=== PATIENT | female | born 1995 | race Two or more races ===

== ENCOUNTER 2021-09-23 08:32 | Day surgery (SDC) | payer OTHER ==
[2021-09-23] MEDS ORDERED: hydrALAZINE 20 MG/ML VIAL SLOW IVP PRN (09:20)
[2021-09-23] MEDS ORDERED: Lactated Ringer's 1,000 ML IV SCH (09:30)
[2021-09-23 10:22] LABS: Bilirubin Neg (Negative); Blood, Urine 25 (Negative); Clarity Clear (Clear); Glucose, Urine (Dipstick) 50 mg/dL (Negative); Ketone, Urine Negative (Negative); Leukocyte 100 (Negative); Nitrite Negative (Negative); Protein, Urine (Dipstick) Negative (Neg-Trace); Specific Gravity, Urine 1.015 (1.002-1.036); Urobilinogen Normal mg/dL (Less than 2)
[2021-09-23 10:28] LABS: Urine Culture Reflex No No
[2021-09-23 10:41] LABS: Platelet Count 265 10x3/uL (150-450)
[2021-09-23 10:42] LABS: #Eosinphils 0.1 10x3/uL (0.0-0.5); #Monocytes 0.8 10x3/uL (0.0-1.1); #Neutrophils 7.8 10x3/uL (1.5-8.4); %Basophils 0.1 % (0.0-2.0); %Eosinophils 1.2 % (0.0-6.0); %Lymphocytes 14.5 % (18.0-47.0); %Monocytes 7.3 % (0.0-10.0); %Neutrophils 76.4 % (40.0-75.0); Hemoglobin 9.4 g/dL (12.0-15.5); Mean Corpuscular HGB CONC 31.3 g/dL (32.0-36.0); Mean Corpuscular Volume 70.1 fl (81.6-98.3); Mean Platelet Volume 11.7 fl (7.4-10.4); RBC Distribution Width 18.4 % (11.5-14.5); Red Blood Cell (RBC) Count 4.28 10x6/uL (3.90-5.03); White Blood Cell (WBC) Count 10.3 10x3/uL (3.5-10.5)
[2021-09-23 10:46] LABS: RBC/HPF 0-3 HPF (0-3)
[2021-09-23 10:47] LABS: Bacteria/HPF 1+ HPF (None Seen); Squamous Epithelial 0-3 HPF (0-3); Yeast-Budding 1+ HPF (None Seen)
[2021-09-23 10:49] LABS: FFN Internal QC Analyzer PASS (PASS); FFN Internal QC Cassette PASS (PASS); Fetal Fibronectin Negative (Negative)
[2021-09-23] MEDS ORDERED: ceFAZolin 2 GM/Dextrose 50 ML IVPB ONE (11:49)
[2021-09-23 11:52] VITALS: BMI 37.8
[2021-09-23] MEDS ORDERED: Fluconazole 100 MG TAB PO SCH (14:00)
[2021-09-23] MEDS ORDERED: ceFAZolin 2 GM/Dextrose 50 ML 2 GM in Premix Bag 1 BAG IVPB SCH (20:00)
[2021-09-24] MEDS ORDERED: Fluconazole 100 MG TAB PO SCH (09:00)
== END 2021-09-23 13:35 | disposition home health service (06) ==
LOC: CSHLD/OP 08:32
PROVIDERS: ATTEND Obstetrics & Gynecology
DX: O26.853 Spotting complicating pregnancy, third trimester (principal); O98.813 Other maternal infectious and parasitic diseases complicating pregnancy, third trimester; B37.3 Candidiasis of vulva and vagina; O23.43 Unspecified infection of urinary tract in pregnancy, third trimester; N39.0 Urinary tract infection, site not specified; O24.419 Gestational diabetes mellitus in pregnancy, unspecified control; Z3A.31 31 weeks gestation of pregnancy
CPT/HCPCS: 36415; 76815; 81001; 82731; 85025; 87086; 87480; 87510; 87660; 96361; 96365; 99282; J0690

== ENCOUNTER 2021-10-15 09:13 | Day surgery (SDC) | payer OTHER ==
[2021-10-15] MEDS ORDERED: hydrALAZINE 20 MG/ML VIAL SLOW IVP PRN (10:56)
== END 2021-10-15 13:35 | disposition home or self-care (01) ==
LOC: CSHLD/OP 09:13
PROVIDERS: ATTEND Obstetrics & Gynecology
DX: O47.03 False labor before 37 completed weeks of gestation, third trimester (principal); O23.593 Infection of other part of genital tract in pregnancy, third trimester; O98.813 Other maternal infectious and parasitic diseases complicating pregnancy, third trimester; B37.3 Candidiasis of vulva and vagina; O24.414 Gestational diabetes mellitus in pregnancy, insulin controlled; Z3A.34 34 weeks gestation of pregnancy
CPT/HCPCS: 36416; 87480; 87510; 87660; 99285

== ENCOUNTER 2021-10-29 15:41 | Outpatient (CLI) | payer OTHER | END 2021-10-29 15:42 | disposition home or self-care (01) | LOC: CSHLAB 15:41 | PROVIDERS: ATTEND Family Medicine | DX: Z20.822 Contact with and (suspected) exposure to COVID-19 (principal) | CPT/HCPCS: 87811 ==

== ENCOUNTER 2021-10-30 14:14 | Day surgery (SDC) | payer OTHER ==
[2021-10-30 14:53] VITALS: BMI 37.3
[2021-10-30] MEDS ORDERED: hydrALAZINE 20 MG/ML VIAL SLOW IVP PRN (16:08)
== END 2021-10-30 18:15 | disposition home or self-care (01) ==
LOC: CSHLD/OP 14:14 → EEVIPCON 14:14 → CSHLD/OP 18:15
PROVIDERS: ATTEND Family Medicine
DX: O47.03 False labor before 37 completed weeks of gestation, third trimester (principal); O24.414 Gestational diabetes mellitus in pregnancy, insulin controlled; O99.013 Anemia complicating pregnancy, third trimester; O99.613 Diseases of the digestive system complicating pregnancy, third trimester; K21.9 Gastro-esophageal reflux disease without esophagitis; O23.593 Infection of other part of genital tract in pregnancy, third trimester; B96.89 Other specified bacterial agents as the cause of diseases classified elsewhere; O98.813 Other maternal infectious and parasitic diseases complicating pregnancy, third trimester; B37.3 Candidiasis of vulva and vagina; Z3A.36 36 weeks gestation of pregnancy
CPT/HCPCS: 87480; 87510; 87660

== ENCOUNTER 2021-11-03 18:00 | Inpatient (IN) | payer OTHER ==
[~2021-11-03 18:00] MED LIST: Bupivacaine 0.25% HCL 30 ML VIAL ONE; Bupivacaine 0.5% 10 ML VIAL ONE
[2021-11-03] MEDS ORDERED: HYDROcodone/Acetaminophen 5/325 mg Tablet PO PRN (22:48)
[2021-11-03] MEDS ORDERED: Lidocaine 1% (PF) 30 ML VIAL SC PRN (22:48)
[2021-11-03] MEDS ORDERED: Methylergonovine 0.2 MG/ML VIAL IM PRN (22:48)
[2021-11-03] MEDS ORDERED: Carboprost 250 MCG/ML AMP IM PRN (22:48)
[2021-11-03] MEDS ORDERED: Acetaminophen 500 MG TAB PO PRN (22:48)
[2021-11-03] MEDS ORDERED: Misoprostol 200 MCG TAB PR PRN (22:48)
[2021-11-03] MEDS ORDERED: NS w/ Oxytocin 30 units 500 ML IV SCH ×2 (22:48)
[2021-11-03] MEDS ORDERED: Lactated Ringer's 1,000 ML IV SCH (22:48)
[2021-11-03] MEDS ORDERED: Promethazine HCl 25 MG/ML VIAL IM PRN (22:48)
[2021-11-03] MEDS ORDERED: Ondansetron PF 4 MG/2 ML Vial IVP PRN (22:48)
[2021-11-03] MEDS ORDERED: Ibuprofen 800 MG TAB PO PRN (22:48)
[2021-11-03] MEDS ORDERED: hydrALAZINE 20 MG/ML VIAL SLOW IVP PRN (22:48)
[2021-11-03] MEDS ORDERED: Butorphanol Tartrate 1 MG/ML VIAL SLOW IVP PRN (22:48)
[2021-11-03] MEDS ORDERED: Diphenoxylate HCl/Atropine Tablet PO PRN (22:48)
[2021-11-03] MEDS ORDERED: Penicillin G Potassium 5 MILL.UNITS in Sodium Chloride 0.9% 100 ML IVPB SCH (23:00)
[2021-11-03 23:03] VITALS: BMI 37.3
[2021-11-04 00:05] LABS: Hemoglobin 9.3 g/dL (12.0-15.5); Mean Corpuscular HGB CONC 31.2 g/dL (32.0-36.0); Mean Corpuscular Hemoglobin 21.8 pg (27.0-33.0); Mean Corpuscular Volume 69.8 fl (81.6-98.3); Platelet Count 228 10x3/uL (150-450); RBC Distribution Width 25.4 % (11.5-14.5); Red Blood Cell (RBC) Count 4.27 10x6/uL (3.90-5.03); White Blood Cell (WBC) Count 9.1 10x3/uL (3.5-10.5)
[2021-11-04 00:22] LABS: Syphilis Antibody Nonreactive (Nonreactive); Syphilis Antibody Index 0.05 S/CO (<1.00 Non-Reactive)
[2021-11-04 00:25] LABS: HBSAg Index 0.14 S/CO (0-0.99); Hep B Surf Ag Non-Reactive S/CO (NonReactive)
[2021-11-04] MEDS: Penicillin G 2.5 MILL.units 2.5 MILL.UNITS in Premix Bag 1 BAG IVPB SCH ×3 (03:59→14:01)
[2021-11-04] MEDS: Misoprostol 100 MCG TAB VAG SCH ×2 (04:01→14:00)
[2021-11-04] MEDS ORDERED: Fentanyl 2 mcg/Bup 0.1% Cadd 100 ML ONE (08:11)
[2021-11-04] MEDS ORDERED: Ondansetron PF 4 MG/2 ML Vial IVP PRN ×2 (09:43→13:58)
[2021-11-04] MEDS ORDERED: diphenhydrAMINE 50 MG/ML VIAL IVP PRN (09:43)
[2021-11-04] MEDS ORDERED: Acetaminophen 325 MG TAB PO PRN (09:43)
[2021-11-04] MEDS ORDERED: Lactated Ringer's 500 ML IV PRN (09:43)
[2021-11-04] MEDS ORDERED: Naloxone HCl 0.4 mg/ml Vial IVP PRN ×2 (09:43)
[2021-11-04] MEDS ORDERED: Promethazine HCl 25 MG/ML VIAL IM PRN ×2 (09:43→13:58)
[2021-11-04] MEDS ORDERED: ePHEDrine Sulfate 50 MG/10 ML VIAL SLOW IVP PRN (09:43)
[2021-11-04] MEDS ORDERED: Moisturizing Cream (Eucerin) 113 GM JAR TOP PRN (09:43)
[2021-11-04] MEDS ORDERED: Fentanyl 2 mcg/Bupivacaine 0.1% Cassette 100 ML EPIDURAL SCH (09:45)
[2021-11-04] MEDS ORDERED: Communication Order-Pharmacy FS SCH (09:45)
[2021-11-04] MEDS ORDERED: Milk Of Magnesia 30 ML UDCUP PO PRN (13:58)
[2021-11-04] MEDS ORDERED: Bisacodyl 10 MG SUPP PR PRN (13:58)
[2021-11-04] MEDS ORDERED: HYDROcodone/Acetaminophen 5/325 mg Tablet PO PRN (13:58)
[2021-11-04] MEDS ORDERED: Boostrix 0.5 ML (Tdap) VIAL IM ONE (13:58)
[2021-11-04] MEDS ORDERED: Benzocaine-Menthol 82.5 ML CAN TOP PRN (13:58)
[2021-11-04] MEDS ORDERED: hydrALAZINE 20 MG/ML VIAL SLOW IVP PRN (13:58)
[2021-11-04] MEDS ORDERED: NS w/ Oxytocin 30 units 500 ML IV SCH (13:58)
[2021-11-04] MEDS ORDERED: diphenhydrAMINE 25 MG CAP PO PRN (13:58)
[2021-11-04] MEDS: Ibuprofen 800 MG TAB PO SCH ×2 (15:30→17:33)
[2021-11-04] MEDS: Ferrous Sulfate 325 MG TAB PO SCH (17:33)
[2021-11-04] MEDS: Docusate 100 MG CAP PO SCH (21:22)
[2021-11-05] MEDS: Ibuprofen 800 MG TAB PO SCH ×3 (02:07→18:05)
[2021-11-05] MEDS: Docusate 100 MG CAP PO SCH ×2 (09:37→20:47)
[2021-11-05] MEDS: Prenatal Vitamin 1 TAB PO SCH (09:37)
[2021-11-05] MEDS: Ferrous Sulfate 325 MG TAB PO SCH ×2 (09:37→18:04)
[2021-11-06] MEDS: Ibuprofen 800 MG TAB PO SCH ×3 (04:38→13:52)
[2021-11-06 07:44] VITALS: BP 120/70; TEMP 98.5
[2021-11-06] MEDS: Ferrous Sulfate 325 MG TAB PO SCH (08:00)
[2021-11-06] MEDS: Prenatal Vitamin 1 TAB PO SCH (08:00)
[2021-11-06] MEDS: Docusate 100 MG CAP PO SCH (08:01)
== END 2021-11-06 15:09 | disposition home or self-care (01) | DRG 807 ==
LOC: CSHLD 20:32 → CSHPED 11-04 13:40
PROVIDERS: ADMIT Family Medicine; ATTEND Family Medicine
PROC: 10E0XZZ Delivery of Products of Conception, External Approach (ICD-10-PCS; principal; 2021-11-04)
PROC: 0HQ9XZZ Repair Perineum Skin, External Approach (ICD-10-PCS; 2021-11-04)
PROC: 10907ZC Drainage of Amniotic Fluid, Therapeutic from Products of Conception, Via Natural or Artificial Opening (ICD-10-PCS; 2021-11-04)
PROC: 3E0P7VZ Introduction of Hormone into Female Reproductive, Via Natural or Artificial Opening (ICD-10-PCS; 2021-11-04)
DX: O24.424 Gestational diabetes mellitus in childbirth, insulin controlled (principal); Z37.0 Single live birth; Z79.4 Long term (current) use of insulin; Z3A.37 37 weeks gestation of pregnancy; Z20.822 Contact with and (suspected) exposure to COVID-19; O99.824 Streptococcus B carrier state complicating childbirth; O69.81X0 Labor and delivery complicated by cord around neck, without compression, not applicable or unspecified; O70.0 First degree perineal laceration during delivery
CPT/HCPCS: 36415; 36416; 51702; 85027; 86780; 86850; 86900; 86901; 87340; J0595; J2405; J2540; J2590; J3490; S0020

== ENCOUNTER 2023-06-29 11:49 | Emergency (ER) | payer OTHER, SELFPAY ==
[2023-06-29 13:13] LABS: Bilirubin Neg (Negative); Blood, Urine Negative (Negative); Clarity Clear (Clear); Glucose, Urine (Dipstick) Normal (Negative); Ketone, Urine Negative (Negative); Leukocyte Negative (Negative); Nitrite Negative (Negative); Protein, Urine (Dipstick) Negative (Neg-Trace); Urobilinogen Normal mg/dL (Less than 2)
[2023-06-29 13:15] LABS: Pregnancy Test - Urine (BHCG) Negative (Negative)
[2023-06-29 13:17] LABS: Pregu Control Background? CLEAR/WHITE (CLR/WHITE); Pregu Control Bar Appear? YES (CONTROL BAR)
[2023-06-29 14:28] LABS: Bacteria/HPF None Seen HPF (None Seen); CAUTI Indications for Culture Pelvic or flank pain; RBC/HPF 0-3 HPF (0-3); Squamous Epithelial 0-3 HPF (0-3); WBC/HPF None Seen HPF (0-3)
[2023-06-29 14:29] LABS: Urine Culture Reflex No No
== END 2023-06-29 13:59 | disposition home or self-care (01) ==
LOC: CSHERS 11:49
DX: N93.9 Abnormal uterine and vaginal bleeding, unspecified (principal)
CPT/HCPCS: 81001; 81025; 99283

== ENCOUNTER 2023-11-28 10:23 | Emergency (ER) | payer MEDICAID, SELFPAY ==
[2023-11-28] MEDS ORDERED: Ondansetron PF 4 MG/2 ML Vial ONE (11:34)
[2023-11-28 12:15] LABS: #Basophils 0.02 10x3/uL (0.0-0.2); #Eosinphils 0.13 10x3/uL (0.0-0.5); #Monocytes 0.92 10x3/uL (0.0-1.1); #Neutrophils 7.94 10x3/uL (1.5-8.4); %Basophils 0.2 % (0.0-2.0); %Eosinophils 1.1 % (0.0-6.0); %Neutrophils 69.4 % (40.0-75.0); Hematocrit 38.8 % (34.9-44.5); Hemoglobin 12.6 g/dL (12.0-15.5); Mean Corpuscular HGB CONC 32.5 g/dL (32.0-36.0); Mean Corpuscular Hemoglobin 26.2 pg (27.0-33.0); Mean Corpuscular Volume 80.7 fL (81.6-98.3); Mean Platelet Volume 10.3 fL (7.4-10.4); Platelet Count 299 10x3/uL (150-450); RBC Distribution Width 15.4 % (11.5-14.5); Red Blood Cell (RBC) Count 4.81 10x6/uL (3.90-5.03); White Blood Cell (WBC) Count 11.5 10x3/uL (3.5-10.5)
[2023-11-28 12:29] LABS: ALT (SGPT) 36 U/L (8-55); AST (SGOT) 25 U/L (5-34); Albumin 3.3 g/dL (3.5-5.0); Alkaline Phosphatase 81 U/L (40-110); Anion Gap 12 mmol/L (10-20); BUN (Urea Nitrogen) 8 mg/dL (7.0-18.7); Bilirubin, Total 0.3 mg/dL (0.2-1.2); Calc. Creatinine Clearance 0 mL/min (70-130); Calcium 9.8 mg/dL (7.8-10.44); Carbon Dioxide 24 mmol/L (22-29); Chloride 102 mmol/L (98-107); Estimated GFR 122; Globulin 4.3 g/dL (2.4-3.5); Glucose 93 mg/dL (70-105); Protein, Total 7.6 g/dL (6.0-8.3); Sodium 134 mmol/L (136-145)
[2023-11-28 13:32] LABS: Bilirubin Neg (Negative); Blood, Urine Negative (Negative); Clarity Slightly Cloudy (Clear); Glucose, Urine (Dipstick) Normal (Negative); Ketone, Urine Negative (Negative); Leukocyte Negative (Negative); Nitrite Negative (Negative); Protein, Urine (Dipstick) 15 mg/dl (Neg-Trace); Urobilinogen Normal mg/dL (Less than 2)
[2023-11-28 13:43] LABS: Bacteria/HPF 2+ HPF (None Seen); CAUTI Indications for Culture Pregnancy; RBC/HPF 0-3 HPF (0-3); WBC/HPF 0-3 HPF (0-3)
[2023-11-28 13:46] LABS: Urine Culture Reflex Yes Yes
[2023-11-28] MEDS ORDERED: Lidocaine 2% Viscous 10 mL, Alum & Magn 30 mL SSW SCH (14:00)
== END 2023-11-28 14:45 | disposition home or self-care (01) ==
LOC: CSHERS 10:23
DX: O21.0 Mild hyperemesis gravidarum (principal); O24.419 Gestational diabetes mellitus in pregnancy, unspecified control; Z3A.11 11 weeks gestation of pregnancy
CPT/HCPCS: 80053; 81001; 85025; 87086; 96361; 96374; J2405

== ENCOUNTER 2024-03-25 17:30 | Day surgery (SDC) | payer OTHER ==
[2024-03-25 18:14] VITALS: BMI 38.7
[2024-03-25] MEDS ORDERED: hydrALAZINE 20 MG/ML VIAL SLOW IVP PRN (18:26)
[2024-03-25 18:42] LABS: Bilirubin Neg (Negative); Blood, Urine 10 (Negative); Clarity Clear (Clear); Glucose, Urine (Dipstick) 250 mg/dL (Negative); Ketone, Urine Negative (Negative); Leukocyte Negative (Negative); Nitrite Negative (Negative); Protein, Urine (Dipstick) Negative (Neg-Trace); Urobilinogen Normal mg/dL (Less than 2)
[2024-03-25 18:53] LABS: Bacteria/HPF Rare-Few HPF (None Seen); CAUTI Indications for Culture Pregnancy; RBC/HPF 0-3 HPF (0-3); Squamous Epithelial 0-3 HPF (0-3); WBC/HPF 0-3 HPF (0-3)
[2024-03-25 18:54] LABS: Urine Culture Reflex Yes Yes
[2024-03-25 20:56] LABS: ALT (SGPT) 10 U/L (8-55); AST (SGOT) 11 U/L (5-34); Albumin 2.6 g/dL (3.5-5.0); Alkaline Phosphatase 84 U/L (40-110); Anion Gap 13 mmol/L (10-20); BUN (Urea Nitrogen) 6 mg/dL (7.0-18.7); Bilirubin, Total 0.3 mg/dL (0.2-1.2); Calc. Creatinine Clearance 267 mL/min (70-130); Calcium 9.1 mg/dL (7.8-10.44); Carbon Dioxide 19 mmol/L (22-29); Chloride 107 mmol/L (98-107); Estimated GFR 128; Glucose 96 mg/dL (70-105); Potassium 3.7 mmol/L (3.5-5.1); Protein, Total 6.6 g/dL (6.0-8.3); Sodium 135 mmol/L (136-145)
[2024-03-25 20:58] LABS: #Basophils 0.01 10x3/uL (0.0-0.2); #Eosinophils 0.11 10x3/uL (0.0-0.5); #Monocytes 0.89 10x3/uL (0.0-1.1); #Neutrophils 8.22 10x3/uL (1.5-8.4); %Basophils 0.1 % (0.0-2.0); %Lymphocytes 17.4 % (18.0-47.0); %Monocytes 7.9 % (0.0-10.0); %Neutrophils 72.7 % (40.0-75.0); Hematocrit 30.8 % (34.9-44.5); Hemoglobin 9.2 g/dL (12.0-15.5); Mean Corpuscular HGB CONC 29.9 g/dL (32.0-36.0); Mean Corpuscular Hemoglobin 21.8 pg (27.0-33.0); Mean Platelet Volume 11.1 fL (7.4-10.4); Platelet Count 262 10x3/uL (150-450); RBC Distribution Width 17.9 % (11.5-14.5); Red Blood Cell (RBC) Count 4.22 10x6/uL (3.90-5.03); White Blood Cell (WBC) Count 11.3 10x3/uL (3.5-10.5)
[2024-03-25] MEDS: Lidocaine 2% Viscous Solution 10 ML, Aluminum & Magnesium Hydroxide 30 ML SSW SCH (21:33)
== END 2024-03-25 22:10 | disposition home or self-care (01) ==
LOC: CSHLD/OP 17:30 → EEVIPCON 17:30 → CSHLD/OP 22:10
PROVIDERS: ATTEND Family Medicine
DX: O26.612 Liver and biliary tract disorders in pregnancy, second trimester (principal); K82.4 Cholesterolosis of gallbladder; O99.612 Diseases of the digestive system complicating pregnancy, second trimester; K21.9 Gastro-esophageal reflux disease without esophagitis; Z3A.27 27 weeks gestation of pregnancy; Z79.899 Other long term (current) drug therapy
CPT/HCPCS: 36415; 76705; 76815; 80053; 81001; 85025; 87086

== ENCOUNTER 2024-04-06 02:21 | Day surgery (SDC) | payer OTHER ==
[2024-04-06 03:00] VITALS: BMI 41.4
[2024-04-06] MEDS ORDERED: Lactated Ringer's 1,000 ML IV SCH (04:00)
[2024-04-06] MEDS: Acetaminophen 500 MG TAB PO SCH (04:27)
[2024-04-06 05:20] LABS: #Basophils 0.02 10x3/uL (0.0-0.2); #Monocytes 0.65 10x3/uL (0.0-1.1); #Neutrophils 8.67 10x3/uL (1.5-8.4); %Basophils 0.2 % (0.0-2.0); %Eosinophils 0.9 % (0.0-6.0); %Lymphocytes 14.2 % (18.0-47.0); %Monocytes 5.9 % (0.0-10.0); %Neutrophils 78.1 % (40.0-75.0); Hematocrit 30.8 % (34.9-44.5); Hemoglobin 9.5 g/dL (12.0-15.5); Mean Corpuscular HGB CONC 30.8 g/dL (32.0-36.0); Mean Corpuscular Hemoglobin 21.6 pg (27.0-33.0); Mean Corpuscular Volume 70.2 fL (81.6-98.3); Platelet Count 253 10x3/uL (150-450); Red Blood Cell (RBC) Count 4.39 10x6/uL (3.90-5.03); White Blood Cell (WBC) Count 11.1 10x3/uL (3.5-10.5)
[2024-04-06 05:24] LABS: Creatinine, Urine 23.84 mg/dL (47-110); Protein, Urine Random Quant Less than 10 mg/dL (1-14)
[2024-04-06 05:27] LABS: ALT (SGPT) 11 U/L (8-55); AST (SGOT) 16 U/L (5-34); Albumin 2.7 g/dL (3.5-5.0); Alkaline Phosphatase 104 U/L (40-110); Anion Gap 14 mmol/L (10-20); BUN (Urea Nitrogen) 5 mg/dL (7.0-18.7); Bilirubin, Total 0.2 mg/dL (0.2-1.2); Calc. Creatinine Clearance 269 mL/min (70-130); Carbon Dioxide 18 mmol/L (22-29); Chloride 109 mmol/L (98-107); Estimated GFR 126; Globulin 3.9 g/dL (2.4-3.5); Glucose 156 mg/dL (70-105); Potassium 3.7 mmol/L (3.5-5.1); Protein, Total 6.6 g/dL (6.0-8.3); Sodium 137 mmol/L (136-145)
[2024-04-06 06:08] LABS: Platelet Adequacy Comment Appears Adequate
[2024-04-06 06:09] LABS: Anisocytosis SLIGHT = 6-15 cells (100X) (0-5/hpf); Hypochromia SLIGHT = 6-15 cells (100X) (0-5/hpf); Large Platelets SLIGHT (None Seen); Microcytosis MODERATE=15-30 cells (100X) (0-5/hpf); Ovalocytes SLIGHT = 2-5 cells (100X) (0-1/hpf); Polychromasia MODERATE = 3-4 cells (100X) (0-2/hpf)
== END 2024-04-06 08:45 | disposition home health service (06) ==
LOC: CSHLD/OP 02:21
PROVIDERS: ATTEND Family Medicine
DX: O9A.213 Injury, poisoning and certain other consequences of external causes complicating pregnancy, third trimester (principal); O99.891 Other specified diseases and conditions complicating pregnancy; M54.9 Dorsalgia, unspecified; R00.0 Tachycardia, unspecified; O24.419 Gestational diabetes mellitus in pregnancy, unspecified control; Z3A.29 29 weeks gestation of pregnancy; W01.0XXA Fall on same level from slipping, tripping and stumbling without subsequent striking against object, initial encounter
CPT/HCPCS: 76819; 80053; 82570; 84156; 85025; 96360; 99284

== ENCOUNTER 2024-05-18 21:43 | Emergency (ER) | payer OTHER | END 2024-05-18 23:48 | disposition home or self-care (01) | LOC: CSHERS 21:43 | DX: J98.8 Other specified respiratory disorders (principal); B97.89 Other viral agents as the cause of diseases classified elsewhere | CPT/HCPCS: 87081; 87428; 87430; 99283 ==